=== PATIENT | male | born 1975 | race Caucasian/White ===

== ENCOUNTER → 2022-10-21 | Outpatient (CLI) | payer BC | LOC: M CARPUL 10:38 | PROVIDERS: ATTEND Physician Assistant | DX: R06.00 Dyspnea, unspecified (principal) ==

== ENCOUNTER → 2022-11-11 | Outpatient (CLI) | payer BC ==
[~2022-11-11] MED LIST: METHACHOLINE KIT INH ONE
== END ==
LOC: M CARPUL 08:16
PROVIDERS: ATTEND Physician Assistant
DX: R06.00 Dyspnea, unspecified (principal)

== ENCOUNTER 2025-03-09 09:12 | Inpatient (IN) | payer BC ==
[~2025-03-09] VITALS: Ht 175.3 cm; Wt 120.7 kg
[2025-03-09] MEDS: NICOTINE 14 MG/24 HR TRANSDERMAL TD SCH (09:00)
[2025-03-09 10:19] LABS: HEMATOCRIT 46.3 % (42.0-52.0); HEMOGLOBIN 15.4 g/dl (13.5-17.5); MEAN CORPUSCULAR HEMOGLOBIN 29.3 pg (27.0-33.0); MEAN CORPUSCULAR HGB CONC 33.3 g/dl (32.0-36.5); MEAN CORPUSCULAR VOLUME 88.2 fl (80.0-96.0); PLATELET COUNT, AUTOMATED 249 10^3/uL (150-450); RED BLOOD COUNT 5.25 10^6/uL (4.30-6.10); WHITE BLOOD COUNT 8.2 10^3/uL (4.0-10.0)
[2025-03-09 10:24] LABS: AMPHETAMINES LEVEL URINE NEGATIVE (NEGATIVE); BENZODIAZEPINES URINE NEGATIVE (NEGATIVE)
[2025-03-09 10:25] LABS: BARBITURATES URINE NEGATIVE (NEGATIVE); CANNABINOIDS URINE NEGATIVE (NEGATIVE); COCAINE METABOLITE URINE NEGATIVE (NEGATIVE); METHADONE URINE NEGATIVE (NEGATIVE); OPIATES URINE NEGATIVE (NEGATIVE); PHENCYCLIDINE URINE NEGATIVE (NEGATIVE)
[2025-03-09 10:27] LABS: ETHYL ALCOHOL (ETHANOL) 0.004 % (0.000-0.010)
[2025-03-09 10:28] LABS: SALICYLATE LEVEL < 3.0 MG/DL (<30)
[2025-03-09 10:29] LABS: ALBUMIN 4.1 G/DL (3.2-5.2); ALKALINE PHOSPHATASE 91 U/L (40-129); ALT/SGPT 51 U/L (7.0-40); AST/SGOT 25 U/L (<34); BILIRUBIN,DIRECT 0.2 MG/DL (<0.4); BILIRUBIN,TOTAL 0.6 MG/DL (0.3-1.2); BLOOD UREA NITROGEN 14 MG/DL (9-23); CARBON DIOXIDE LEVEL 26 MMOL/L (20-31); CHLORIDE LEVEL 109 MMOL/L (98-107); CREATININE FOR GFR 1.01 MG/DL (0.70-1.30); GLOMERULAR FILTRATION RATE > 90.0 (>60); GLUCOSE, FASTING 103 MG/DL (60-100); SODIUM LEVEL 143 MMOL/L (136-145); TOTAL PROTEIN 7.7 G/DL (5.7-8.2)
[2025-03-09] MEDS ORDERED: CLOT1CRE56 TOP (11:11)
[2025-03-09] MEDS ORDERED: IBUP80TA PO (11:11)
[2025-03-09] MEDS ORDERED: VRAY1.5C PO (11:11)
[2025-03-09] MEDS ORDERED: HOME MED LIST COMPLETE! XX SCH (11:15)
[2025-03-09] MEDS: IBUPROFEN 800 MG TAB PO ONE (13:24)
[2025-03-09] MEDS ORDERED: MOM 30ML SUSPENSION UDC PO PRN (14:00)
[2025-03-09] MEDS ORDERED: MAALOX 30 ML SUSP *UDC PO PRN (14:00)
[2025-03-09] MEDS ORDERED: traZODone 50 MG TAB PO PRN (14:00)
[2025-03-09] MEDS ORDERED: LORazepam 1 MG TAB PO PRN (14:00)
[2025-03-09] MEDS ORDERED: OLANZapine 5 MG TAB PO PRN (14:00)
[2025-03-09] MEDS ORDERED: ACETAMINOPHEN 325 MG TAB PO PRN (14:00)
[2025-03-09] MEDS ORDERED: diphenhydrAMINE 25MG CAP PO PRN (14:00)
[2025-03-09 15:50] VITALS: BP 130/85; TEMP 97.3; O2SAT 99
[2025-03-09] MEDS ORDERED: CARIPRAZINE 1.5MG CAPSULE (VRAYLAR) PO SCH (21:00)
[2025-03-09] MEDS: LORazepam 2 MG TAB PO STA (21:03)
[2025-03-09] MEDS: CARIPRAZINE 3MG CAPSULE (VRAYLAR) PO SCH (21:03)
[2025-03-10 06:37] VITALS: BP 120/69; TEMP 97.9; O2SAT 99
[2025-03-10] MEDS ORDERED: VRAY3CAP PO (08:52)
[2025-03-10] MEDS: IBUPROFEN 800 MG TAB PO PRN (09:38)
== END 2025-03-10 13:04 | disposition home or self-care (01) | DRG 751 ==
LOC: M ED 09:12 → M ED INP 13:57 → M PSY 14:40
PROVIDERS: ADMIT Internal Medicine; ATTEND Psychiatry & Neurology Psychiatry
DX: F32.1 Major depressive disorder, single episode, moderate (principal); U09.9 Post COVID-19 condition, unspecified; F41.1 Generalized anxiety disorder; R43.8 Other disturbances of smell and taste; F40.01 Agoraphobia with panic disorder; F43.10 Post-traumatic stress disorder, unspecified; F42.8 Other obsessive-compulsive disorder; F90.9 Attention-deficit hyperactivity disorder, unspecified type; Z62.811 Personal history of psychological abuse in childhood